=== PATIENT | female | born 1990 | race American Indian/Alaskan Native ===

== ENCOUNTER 2016-12-09 23:43 | Emergency (ER) | payer SELFPAY ==
[2016-12-10] MEDS ORDERED: XANAX PO ONE (00:52)
--- NOTE | 2016-12-10 00:57 | Emergency Department Report ---
ED Anxiety HPI - General Chief Complaint: Anxiety Stated Complaint: ANXIETY Time Seen by Provider: 12/10/16 00:51 Source: patient, family Mode of arrival: Stretcher - History of Present Illness Initial Comments: Pt is a 26 yr old female with a h/o anxiety who presents with chest pain and "bubbles" in her arms. Pt reports she was sitting outside her home today when she got into an emotional conversation with two men who live near her. Pt reports she did not like the way they were speaking to her and did express to them "they hurt my feelings". Pt then smoked a black and mild and then proceeded into home where she was watching a movie when she started to feel a "bubbling sensation" in her arms and then she experienced a sharp pain in her left breast. Otherwise no other complaints. Denies fevers, chills, NVD, SOB, trauma, abd pain, travel, or sick contacts. Pt does reports she smokes marijuana , but denies any other illicit drugs or ETOH use. Pt has a strong history of anxiety, but she currently does not take any medications for anxiety. MD Complaint: anxiety -: This evening Symptoms: chest pain, extremity numbness, muscle cramps Place: home Previous History of Same: Yes Severity: moderate Quality: intermittant, improving Provoking factors: emotional stress Improves With: deep breaths, rest Worsens With: thinking about event - Related Data Allergies/Adverse Reactions: Allergies Allergy/AdvReac Type Severity Reaction Status Date / Time No Known Allergies Allergy Unverified 12/10/16 01:14 ED Review of Systems ROS: Stated complaint: ANXIETY Other details as noted in HPI Comment: All other systems reviewed and negative ED Past Medical Hx - Past Medical History Previous Medical History?: Yes Additional medical history: ANXIETY - Surgical History Past Surgical History?: No - Social History Smoking Status: Never Smoker Substance Use Type: None ED Physical Exam - General Limitations: No Limitations General appearance: alert, in no apparent distress - Head Head exam: Present: atraumatic, normocephalic - Eye Eye exam: Present: normal appearance - ENT ENT exam: Present: mucous membranes moist - Neck Neck exam: Present: normal inspection - Respiratory Respiratory exam: Present: normal lung sounds bilaterally. Absent: respiratory distress - Cardiovascular Cardiovascular Exam: Present: regular rate, normal rhythm. Absent: systolic murmur, diastolic murmur, rubs, gallop - GI/Abdominal GI/Abdominal exam: Present: soft, normal bowel sounds - Extremities Exam Extremities exam: Present: normal inspection - Back Exam Back exam: Present: normal inspection - Neurological Exam Neurological exam: Present: alert, oriented X3 - Psychiatric Psychiatric exam: Present: normal affect, normal mood - Skin Skin exam: Present: warm, dry, intact, normal color. Absent: rash ED Course Vital Signs 12/10/16 00:12 Temperature 98 F Pulse Rate 100 H Respiratory 16 Rate Blood Pressure 99/73 O2 Sat by Pulse 99 Oximetry ED Medical Decision Making - EKG Data -: EKG Interpreted by Me ([id number]) EKG shows normal: sinus rhythm, axis (Normal axis, ), intervals (1st degree AV block), ST-T waves ((-)St changes, no STEMI) Rate: normal (56 bpm) - Radiology Data Radiology results: image reviewed CXR: NO acute abnormality as visualized by me Critical care attestation.: If time is entered above; I have spent that time in minutes in the direct care of this critically ill patient, excluding procedure time. ED Disposition Clinical Impression: Anxiety, Chest wall pain Disposition: DISCHARGED TO HOME OR SELFCARE Is pt being admited?: No Condition: Stable Instructions: Chest Pain (ED), Anxiety (ED) Referrals: PRIMARY CARE, [Primary Care Provider] - 3-5 Days
--- NOTE | 2016-12-10 02:26 | XRay Report ---
FINAL REPORT PROCEDURE: XR CHEST ROUTINE 2V TECHNIQUE: PA and lateral chest radiographs were obtained. CPT 44716 HISTORY: chest pain COMPARISON: No prior studies are available for comparison. FINDINGS: Heart: Normal. Mediastinum/Vessels: Normal. Lungs/Pleural space: Normal. Bony thorax: No acute osseous abnormality. Other: IMPRESSION: Normal examination.
[2016-12-10 02:51] VITALS: BP 100/74
== END 2016-12-10 02:51 | disposition home or self-care (01) ==
LOC: ED 23:43
DX: F41.9 Anxiety disorder, unspecified (principal); R07.89 Other chest pain
CPT/HCPCS: 71020; 81025; 93005; 93010